=== PATIENT | male | born 1985 | race Caucasian/White ===

== ENCOUNTER 2018-05-25 19:46 | Emergency (ER) | payer OTHER ==
[~2018-05-25] VITALS: Ht 188 cm; Wt 108.9 kg
[2018-05-25 21:00] VITALS: BP 130/74
== END 2018-05-25 21:00 | disposition home or self-care (01) ==
LOC: M.ERS 19:46
DX: S00.83XA Contusion of other part of head, initial encounter (principal); S70.12XA Contusion of left thigh, initial encounter; G43.909 Migraine, unspecified, not intractable, without status migrainosus; W19.XXXA Unspecified fall, initial encounter; Y93.89 Activity, other specified; Y92.89 Other specified places as the place of occurrence of the external cause; Y99.8 Other external cause status